=== PATIENT | male | born 1950 | race Asian ===

== ENCOUNTER 2018-12-09 07:31 | Day surgery (SDC) | payer OTHER, SELFPAY ==
[~2018-12-09] VITALS: Ht 172.7 cm; Wt 105.2 kg
[~2018-12-09 07:31] MED LIST: ATOR10 PO; Amiodarone HCl200 MG PO; Aspirin EC81 MG PO; BIOTIN5000 MCG PO; CARB200ER PO; CLOP75 PO; FISH OIL 1,001000 MG PO; LOSARTAN-HCTZ1 EAC1 PO; METO50 PO; PROBIOTIC1 EAC1 PO
--- NOTE | 2018-12-09 10:28 | NUR ---
12/09/18 1028 Sheri Francisco 1015 D'CD IN STABLE CONDITION AMB. TO CAR W/SBA,NIALL WELL. COPIES OF INSTRUCTIONS WERE GIVEN AND PT AND HIS CONCHITA DENIED ANY QUESTIONS. OL FLUIDS WELL PRIOR TO DC HOME. DENIED PAIN AND DENIED NAUSEA T/O.
== END 2018-12-09 10:15 | disposition home or self-care (01) ==
LOC: ORSCSDS 07:31
PROVIDERS: Ophthalmology
PROC: 08RK3JZ Replacement of Left Lens with Synthetic Substitute, Percutaneous Approach (ICD-10-PCS; principal; 2018-12-09 09:00)
PROC: 08B53ZZ Excision of Left Vitreous, Percutaneous Approach (ICD-10-PCS; principal; 2018-12-09 09:00)
DX: H25.12 Age-related nuclear cataract, left eye (principal); I10 Essential (primary) hypertension; E11.9 Type 2 diabetes mellitus without complications; G47.33 Obstructive sleep apnea (adult) (pediatric); I48.91 Unspecified atrial fibrillation; Z87.891 Personal history of nicotine dependence; E66.9 Obesity, unspecified; Z68.35 Body mass index [BMI] 35.0-35.9, adult; Z79.899 Other long term (current) drug therapy
CPT/HCPCS: J2250; J3010; V2632

== ENCOUNTER 2019-03-10 07:04 | Day surgery (SDC) | payer OTHER ==
[~2019-03-10] VITALS: Ht 172.7 cm; Wt 103.2 kg
== END 2019-03-10 09:15 | disposition home or self-care (01) ==
LOC: ORSCSDS 07:04
PROVIDERS: Ophthalmology
PROC: 08RJ3JZ Replacement of Right Lens with Synthetic Substitute, Percutaneous Approach (ICD-10-PCS; principal; 2019-03-10 08:30)
DX: H25.11 Age-related nuclear cataract, right eye (principal); E78.00 Pure hypercholesterolemia, unspecified
CPT/HCPCS: J2250; J7120; V2632

== ENCOUNTER → 2023-05-23 | Outpatient (CLI) | payer SELFPAY ==
[2023-05-23 21:56] LABS: Bun/Creatinine Ratio 25.7 (12.0-20.0); Calcium, Blood 8.7 mg/dL (8.5-10.1); Creatinine, Blood 1.36 mg/dL (0.60-1.20); Potassium, Blood 3.7 mmol/L (3.5-5.5)
== END | disposition home or self-care (01) ==
LOC: LAB SHORT 14:00 → LAB 14:00
PROVIDERS: Family Medicine
DX: I48.91 Unspecified atrial fibrillation (principal)
CPT/HCPCS: 80048

== ENCOUNTER → 2023-07-08 | Outpatient (CLI) | payer OTHER ==
[2023-07-08 15:17] LABS: Bun/Creatinine Ratio 20.3 (12.0-20.0); Calcium, Blood 8.5 mg/dL (8.5-10.1); Creatinine, Blood 1.28 mg/dL (0.60-1.20); Potassium, Blood 3.5 mmol/L (3.5-5.5)
== END ==
LOC: LAB SHORT 13:18 → LAB 13:18
PROVIDERS: Family Medicine
DX: R94.4 Abnormal results of kidney function studies (principal)
CPT/HCPCS: 80048

== ENCOUNTER 2023-11-22 22:15 | Inpatient (IN) | payer SELFPAY ==
[~2023-11-22] VITALS: Ht 172.7 cm; Wt 99.1 kg
[~2023-11-22 22:15] MED LIST changes: -PROBIOTIC1 EAC1 PO; +VISBIOME 112.51 EACH PO
[2023-11-22 23:29] LABS: BASOPHILS ABSOLUTE AUTO 0.06 K/mm3 (0.00-0.23); BASOPHILS PERCENT AUTO 1 % (0-2); EOSINOPHILS ABSOLUTE AUTO 0.07 K/mm3 (0.00-0.68); EOSINOPHILS PERCENT AUTO 1 % (0-6); Hematocrit 47.1 % (37.0-53.0); Hemoglobin 15.5 g/dL (13.5-17.5); IMMATURE GRAN ABSOLUTE AUTO 0.08 K/mm3 (0.00-0.10); IMMATURE GRAN PERCENT AUTO 1 % (0-1); LYMPHOCYTES ABSOLUTE AUTO 0.63 K/mm3 (0.84-5.20); LYMPHOCYTES PERCENT AUTO 5 % (21-46); MONOCYTES ABSOLUTE AUTO 0.79 K/mm3 (0.16-1.47); MONOCYTES PERCENT AUTO 6 % (4-13); Mean Corpuscular HGB 30.8 pg (26.0-34.0); Mean Corpuscular HGB Conc 32.9 g/dL (31.5-36.5); Mean Corpuscular Volume 94 fL (80-100); Mean Platelet Volume 9.7 fL (9.1-12.4); NEUTROPHILS ABSOLUTE AUTO 11.24 K/mm3 (1.96-9.15); NEUTROPHILS PERCENT AUTO 87 % (41-73); Platelet Count 285 K/mm3 (150-400); RDW Coefficient Variation 12.5 % (11.7-14.2); RDW Standard Deviation 42.4 fL (35.1-46.3); Red Blood Cell Count 5.04 M/mm3 (4.30-5.90); White Blood Cell Count 12.87 K/mm3 (4.00-11.30)
[2023-11-22 23:47] LABS: Albumin, Blood 3.7 g/dL (3.4-5.0); Albumin/Globulin Ratio 0.8 (0.8-1.8); Bilirubin, Total 0.7 mg/dL (0.1-1.0); Bun/Creatinine Ratio 18.9 (12.0-20.0); Calcium, Blood 8.5 mg/dL (8.5-10.1); Creatinine, Blood 1.27 mg/dL (0.60-1.20); Globulin, Blood 4.4 g/dL (2.2-4.0); Potassium, Blood 4.1 mmol/L (3.5-5.5); Total Protein, Blood 8.1 g/dL (6.4-8.2)
[2023-11-23] VITALS (8 sets, daily range): BP systolic 115–158; BP diastolic 77–91
[2023-11-23] MEDS ORDERED: MAGNESIUM (00:46)
[2023-11-23 05:14] LABS: BASOPHILS ABSOLUTE AUTO 0.03 K/mm3 (0.00-0.23); BASOPHILS PERCENT AUTO 0 % (0-2); EOSINOPHILS ABSOLUTE AUTO 0.04 K/mm3 (0.00-0.68); EOSINOPHILS PERCENT AUTO 0 % (0-6); Hematocrit 44.6 % (37.0-53.0); Hemoglobin 14.5 g/dL (13.5-17.5); IMMATURE GRAN ABSOLUTE AUTO 0.05 K/mm3 (0.00-0.10); IMMATURE GRAN PERCENT AUTO 1 % (0-1); LYMPHOCYTES ABSOLUTE AUTO 0.41 K/mm3 (0.84-5.20); LYMPHOCYTES PERCENT AUTO 4 % (21-46); MONOCYTES ABSOLUTE AUTO 0.71 K/mm3 (0.16-1.47); MONOCYTES PERCENT AUTO 7 % (4-13); Mean Corpuscular HGB 30.4 pg (26.0-34.0); Mean Corpuscular HGB Conc 32.5 g/dL (31.5-36.5); Mean Corpuscular Volume 94 fL (80-100); Mean Platelet Volume 9.6 fL (9.1-12.4); NEUTROPHILS ABSOLUTE AUTO 9.65 K/mm3 (1.96-9.15); NEUTROPHILS PERCENT AUTO 89 % (41-73); Platelet Count 266 K/mm3 (150-400); RDW Coefficient Variation 12.4 % (11.7-14.2); RDW Standard Deviation 42.2 fL (35.1-46.3); Red Blood Cell Count 4.77 M/mm3 (4.30-5.90); White Blood Cell Count 10.89 K/mm3 (4.00-11.30)
--- NOTE | 2023-11-23 05:49 | NUR ---
END OF SHIFT NOTE: PT ARRIVED ON UNIT FROM ER DUE TO COMPLAINTS OF SOB. HE IS A/OX4 WITH AT BEDSIDE. HE HAS BEEN IN AFIB WITH A KNOWN HX OF AFIB. HE IS ON CPAP. HE USES CPAP AT NIGHT AT BASELINE BUT CLAIMS HIS HOME CPAP HAS NOT WORKED IN 8 MONTHS. HE USES THE URINAL AT BEDSIDE WITH ASSISTANCE. CALL LIGHT IN REACH AND BED ALARM ON.
[2023-11-23 06:08] LABS: Albumin, Blood 3.7 g/dL (3.4-5.0); Albumin/Globulin Ratio 0.9 (0.8-1.8); Bilirubin, Total 0.8 mg/dL (0.1-1.0); Bun/Creatinine Ratio 17.2 (12.0-20.0); Calcium, Blood 8.9 mg/dL (8.5-10.1); Creatinine, Blood 1.16 mg/dL (0.60-1.20); Magnesium, Blood 2.1 mg/dL (1.6-2.4); Phosphorus, Blood 3.3 mg/dL (2.5-4.9); Potassium, Blood 3.8 mmol/L (3.5-5.5); Total Protein, Blood 7.7 g/dL (6.4-8.2)
--- NOTE | 2023-11-23 18:49 | NUR ---
SHIFT SUMMARY NO ACUTE CHANGES THIS SHIFT. PT A&OX4. SP02>90% ON 2L NC. CPAP WHILE SLEEPING. TELEMETRY SHOWS AFIB, HR MOSTLY 110'S-120'S. AT ONE POINT HR INCREASED TO 120'S-130'S. MD PAYNE NOTIFIED. MD PAYNE W/ ORDERS FOR METOPROLOL PUSH PRN SEE EMAR FOR HR >130'S. PT DID NOT RECEIVE, HR DECREASED TO 110'S WITH REST. PT UP TO BAHTROOM MULTIPLE TIMES TO VOID. DIURESING. NO BM THIS SHIFT. IN ROOM MOST OF DAY. AND PT SITTING IN CHAIRS WATCHING MASS TOGETHER CURRENTLY. CALL LIGHT IN REACH.
[2023-11-24 00:48] LABS: Albumin, Blood 3.4 g/dL (3.4-5.0); Anion Gap 6 mmol/L (6-16); Blood Urea Nitrogen 24 mg/dL (8-24); Bun/Creatinine Ratio 18.8 (12.0-20.0); CO2, Blood 33 mmol/L (21-32); Calcium, Blood 8.7 mg/dL (8.5-10.1); Chloride, Blood 99 mmol/L (98-108); Creatinine, Blood 1.28 mg/dL (0.60-1.20); Glomerular Filtration Rate 58 (60-); Glucose, Blood 190 mg/dL (70-99); Phosphorus, Blood 2.8 mg/dL (2.5-4.9); Potassium, Blood 2.9 mmol/L (3.5-5.5); Sodium, Blood 138 mmol/L (136-145)
[2023-11-24 04:26] VITALS: BP 135/86
--- NOTE | 2023-11-24 04:38 | NUR ---
END OF SHIFT NOTE: PT HR SUSTAINED HR OF 120-130. MD NOTIFIED AND ORDERS PLACED TO GIVE CARDEZIM. MEDICATED PER JAN. PT WORE CPAP WHEN SLEEPING TO MAINTAIN SPO2 >95%. DUE TO INCREASING HR WITH EXERTION CONDOM CATH PLACED TO INCREASE REST FOR PT. CONDOM CATH DRAINING TO GRAVITY CLEAR YELLOW URINE. CALL LIGHT IN REACH AND BED ALARM ON.
[2023-11-24 07:28] VITALS: BP 130/91
[2023-11-24 07:36] LABS: BASOPHILS ABSOLUTE AUTO 0.04 K/mm3 (0.00-0.23); BASOPHILS PERCENT AUTO 1 % (0-2); EOSINOPHILS ABSOLUTE AUTO 0.02 K/mm3 (0.00-0.68); EOSINOPHILS PERCENT AUTO 0 % (0-6); Hematocrit 44.4 % (37.0-53.0); Hemoglobin 14.3 g/dL (13.5-17.5); IMMATURE GRAN ABSOLUTE AUTO 0.03 K/mm3 (0.00-0.10); IMMATURE GRAN PERCENT AUTO 0 % (0-1); LYMPHOCYTES ABSOLUTE AUTO 0.54 K/mm3 (0.84-5.20); LYMPHOCYTES PERCENT AUTO 7 % (21-46); MONOCYTES ABSOLUTE AUTO 1.03 K/mm3 (0.16-1.47); MONOCYTES PERCENT AUTO 13 % (4-13); Mean Corpuscular HGB 30.6 pg (26.0-34.0); Mean Corpuscular HGB Conc 32.2 g/dL (31.5-36.5); Mean Corpuscular Volume 95 fL (80-100); Mean Platelet Volume 9.9 fL (9.1-12.4); NEUTROPHILS ABSOLUTE AUTO 6.27 K/mm3 (1.96-9.15); NEUTROPHILS PERCENT AUTO 79 % (41-73); Platelet Count 222 K/mm3 (150-400); RDW Coefficient Variation 12.4 % (11.7-14.2); RDW Standard Deviation 43.2 fL (35.1-46.3); Red Blood Cell Count 4.67 M/mm3 (4.30-5.90); White Blood Cell Count 7.93 K/mm3 (4.00-11.30)
[2023-11-24 07:53] LABS: Albumin, Blood 3.2 g/dL (3.4-5.0); Anion Gap 4 mmol/L (6-16); Blood Urea Nitrogen 25 mg/dL (8-24); Bun/Creatinine Ratio 22.5 (12.0-20.0); CO2, Blood 33 mmol/L (21-32); Calcium, Blood 8.5 mg/dL (8.5-10.1); Chloride, Blood 102 mmol/L (98-108); Creatinine, Blood 1.11 mg/dL (0.60-1.20); Glomerular Filtration Rate 69 (60-); Glucose, Blood 153 mg/dL (70-99); Phosphorus, Blood 3.2 mg/dL (2.5-4.9); Potassium, Blood 3.9 mmol/L (3.5-5.5); Sodium, Blood 139 mmol/L (136-145)
[2023-11-24 12:19] VITALS: BP 113/66
[2023-11-24 15:07] VITALS: BP 123/85
--- NOTE | 2023-11-24 16:23 | NUR ---
shift summary no acute changes this shift. vss. pt a&ox4. sp02>90% on 2l nc. cpap while sleeping. pt work of breathing improved from day before. telemetry shows afib, hr 80's-120's. condom cath in place w/ yellow urine. denies pain. echo done today, waiting results. in room most of day. pt and in room watching mass. chest xray scheduled for am. call light in reach.
[2023-11-24 21:00] VITALS: BP 141/82
--- NOTE | 2023-11-24 22:38 | NUR ---
ASSUMPTION OF CARE: PATIENT IS ALERT AND ORIENTED, MINOR BARRIER TO LANGUAGE, UNDERSTANDS MAJORITY OF EDUCATION, ABLE TO MAKE NEEDS KNOWN, BED ALARM IN PLACE. CONDOM CATHETER, REFUSED BIPAP/CPAP THIS EVENING. ON 2L VIA NC. TOLERATING WELL, SPO2 >92%. DENIES CHEST PAIN PRESSURE OR SOB AT REST, MILD EXERTIONAL DYSPNEA. PATIENT HAS NO CONCERNS AT THIS TIME. CONTINUOUS PULSE OXIMETRY , CBG NEEDED NO COVERAGE, NO BM SINCE, BOWEL MEDS GIVEN.
[2023-11-25 01:00] VITALS: BP 115/74
[2023-11-25 05:03] VITALS: BP 108/74
--- NOTE | 2023-11-25 06:42 | NUR ---
EOS: ONLY CHANES, THE INCREASE TO THE METOPROLOL HELPED SIGNIFICANTLY KEEPING THE PATIETN BELOW 120, LOWEST OF 76. PATIENT NORMOTENSIVE REFUSED CPAP/BIPAP ALL THROUGH THE NIGHT. CONDOM CATH WORKED WELL. NO CONCERNS. DENIES CHEST PAIN PRESSURE OR SOB.
--- NOTE | 2023-11-25 08:30 | NUR ---
INITIAL ASSESSMENT: Patient is awake OOB to the chair. He is alert and oriented x4. He is slow to answer questions. He denies chest pain or pressure at this time. HR is A-Fib in the 120s-130s, am dose of Metoprolol given at this time. LS DIM in the bases, biox is 96% on 2l via NC, oxygen is titrated down to 1L saturations remain 91-93%. He has a dry NPC. BT+, noc RN states he did have a BM last night, BLE wtih 2+ pitting edema. He has a purplish discoloration to BLE, Cap refill is less than 3 seconds. PPP. AM meds given with a sip of water at this time. BP meds spread out due to BP being on the low side. Dr. Early to round on the patient. He denies other needs at this time, Call light in reach.
[2023-11-25 08:45] VITALS: BP 115/71
[2023-11-25 09:04] LABS: Bun/Creatinine Ratio 23.9 (12.0-20.0); Calcium, Blood 8.7 mg/dL (8.5-10.1); Creatinine, Blood 1.17 mg/dL (0.60-1.20)
[2023-11-25 11:29] VITALS: BP 101/64
[2023-11-25 16:12] VITALS: BP 141/117
--- NOTE | 2023-11-25 18:00 | NUR ---
Summary: Patient has been alert and oriented x4, T/O the shift. He has been sitting up in the chair for the majority of the day with a brief nap in the afternoon. HR was 120s-130s this am prior to the administeration of PO Metoprolol, after medications his heart rate came down in to the 80s-90s at rest. Blood pressures were a little low this am but improved as the day progressed. He has been mid to low 90s on 1L of oxygen via NC, I attempted to wean him down to RA, but his saturations dropped down into the high 80s. LS DIM in the bases. He has a dry NPC. BT+, he is having loose stool. He has 2+ pitting edema to BLE. Plan for possible DC in AM per MD. No acute changes this shift, will report to oncoming RN.
[2023-11-25 20:15] VITALS: BP 124/73
--- NOTE | 2023-11-25 22:01 | NUR ---
NO CHANGES FROM PREVIOUS SHIFT, ONLY IMPROVEMENTS, NOW ON ER CARD, CURERNLTY RESTING IN BED HEARTRATE SLOWLY DECREASING WITH TARTRATE METOP ABSORBPTION CURENTLY IN THE LOW 110-100'S AFIB, DENIES CHEST PAIN PRESSURE OR SOB.
[2023-11-26 03:24] VITALS: BP 112/72
--- NOTE | 2023-11-26 06:15 | NUR ---
EOS: NO CHANGES FROM PREVIOUS SHIFT, EXCEPT PATIENT ON RA, HEART RATE IMPROVED WITH METOP, JOE IN THE UPPER 80'S TO 90'S, DENIES CHEST APIN PRESSURE OR SOB. RECOMMEND DISCHARGE. NO CONCERNS FROM THIS RN. DENIES CHEST PAIN PRESSURE OR SOB.
[2023-11-26 08:41] LABS: Calcium, Blood 8.9 mg/dL (8.5-10.1); Creatinine, Blood 0.94 mg/dL (0.60-1.20); Potassium, Blood 3.3 mmol/L (3.5-5.5)
[2023-11-26 09:31] VITALS: BP 130/82
[2023-11-26] MEDS ORDERED: KLOR-CON 1010 ME1 PO (09:34)
[2023-11-26] MEDS ORDERED: FURO20 PO (09:35)
[2023-11-26] MEDS ORDERED: DILT120 PO (09:35)
[2023-11-26] MEDS ORDERED: LOSA25 PO (09:35)
[2023-11-26] MEDS ORDERED: DOXY100 PO (09:35)
[2023-11-26 10:35] VITALS: BP 126/78
--- NOTE | 2023-11-26 11:13 | NUR ---
DISCHARGE NOTE DISCHARGE EDUCATION REVIEWED WITH PT AND HIS AT BEDSIDE, INCLUDING MEDICATION LIST, NEW PRESCRIPTIONS, FOLLOW UP APPOINTMENTS AND EDUCATION. IV AND TELE REMOVED. PT AND STATE THEY HAVE NO QUESTIONS, BUT NEED A GLUCOSE MONITOR FOR HOME USE. DR SEXTON CONTACTED AND SHE CAME TO ROOM TO SPEAK WITH THE PT AND HIS . PT DISCHARGED WITH THE ASSISTANCE OF WHEELCHAIR, ALL BELONGINGS SENT WITH PT, PT LEFT VIA PRIVATE VEHICLE IN THE CARE OF HIS .
== END 2023-11-26 11:14 | disposition home or self-care (01) | DRG 280 ==
LOC: ER 22:15 → PCU 11-23 01:34 → ERHOLD 11-23 01:34 → PCU 11-23 03:12
PROVIDERS: Emergency Medicine; Family Medicine; Internal Medicine; Student in an Organized Health Care Education/Training Program; ADMIT Internal Medicine
PROC: 5A09357 Assistance with Respiratory Ventilation, Less than 24 Consecutive Hours, Continuous Positive Airway Pressure (ICD-10-PCS; principal; 2023-11-23)
DX: I13.0 Hypertensive heart and chronic kidney disease with heart failure and stage 1 through stage 4 chronic kidney disease, or unspecified chronic kidney disease (principal); I21.A1 Myocardial infarction type 2; I50.33 Acute on chronic diastolic (congestive) heart failure; J96.01 Acute respiratory failure with hypoxia; I48.20 Chronic atrial fibrillation, unspecified; N18.30 Chronic kidney disease, stage 3 unspecified; E11.22 Type 2 diabetes mellitus with diabetic chronic kidney disease; I27.20 Pulmonary hypertension, unspecified; G47.33 Obstructive sleep apnea (adult) (pediatric); T50.1X6A Underdosing of loop [high-ceiling] diuretics, initial encounter; I69.111 Memory deficit following nontraumatic intracerebral hemorrhage; Z79.82 Long term (current) use of aspirin; Z79.02 Long term (current) use of antithrombotics/antiplatelets; Z91.138 Patient's unintentional underdosing of medication regimen for other reason
CPT/HCPCS: 36415; 71045; 71046; 71260; 80048; 80053; 80069; 82947; 83735; 83880; 84100; 84484; 85025; 85379; 93005; 93010; 93306; 94660; 94762; 96374; 96375; 99285-25; A9270; J1644; J1940; J3480; J7050; Q9967

== ENCOUNTER → 2023-11-29 | Outpatient (CLI) | payer OTHER ==
[~2023-11-29] MED LIST changes: +DILT120 PO; +DOXY100 PO; +FURO20 PO; +KLOR-CON 1010 ME1 PO; +LOSA25 PO; +MAGNESIUM
[2023-11-29 13:35] LABS: Creatinine, Urine Random 85.1 mg/dL (27.00-270.00); Protein, Urine Random 9.3 mg/dL (0.0-11.9); Protein/Creat Ratio, Ur Random 0.1
== END ==
LOC: LAB SHORT 10:53 → LAB 10:53
PROVIDERS: Family Medicine
DX: R80.9 Proteinuria, unspecified (principal)
CPT/HCPCS: 82570; 84156